=== PATIENT | female | born 1980 | race Caucasian/White ===

== ENCOUNTER 2016-11-05 19:40 | Emergency (ER) | END 2016-11-06 01:11 | disposition home or self-care (01) | DX: O23.12 Infections of bladder in pregnancy, second trimester (principal); R10.13 Epigastric pain; O99.89 Other specified diseases and conditions complicating pregnancy, childbirth and the puerperium; R51 Headache; R11.0 Nausea; Z3A.15 15 weeks gestation of pregnancy | CPT/HCPCS: 36415; 76805; 81001; 84702; 85025; 86900; 86901; 96374; 96375; 99285; J2405; J7030; Z7610 ==